=== PATIENT | male | born 1990 | race Caucasian/White ===

== ENCOUNTER 2020-11-11 09:56 | Emergency (ER) | payer OTHER, SELFPAY ==
--- NOTE | ~2020-11-11 | XR_ITS ---
EXAMINATION: XR knee LT min 4V DATE: 11/11/2020 10:18 INDICATION: Left knee pain post fall with twisting injury TECHNIQUE: Anteroposterior, 2 oblique and crosstable lateral views of the left knee were obtained COMPARISON: None. FINDINGS: Alignment is normal. No fracture. Small left knee joint effusion without layering lipohemarthrosis. There are several loose osteochondral bodies posterior to the knee in position suggesting they reside within a Ford's cyst. A couple additional smaller likely loose osteochondral bodies project over Ho ffa's fat pad likely within anterior recess of the knee. Soft tissues are otherwise unremarkable. IMPRESSION: 1. Small left knee joint effusion without evident acute osseous abnormality. Reviewed, dictated and finalized at location A.
[2020-11-11 10:16] VITALS: BP 149/106; PULSE 87; RESP 18; TEMP 36.3; O2SAT 99
--- NOTE | 2020-11-11 11:41 | ED.LOWEXIN ---
HPI - Extremity Injury (Lower) General Chief Complaint: Extremity Injury, Lower Stated Complaint: left knee pain, fall Time Seen by Provider: 11/11/20 11:10 Source: patient Mode of arrival: ambulatory Limitations: no limitations History of Present Illness HPI Narrative: This is a 30-year-old male that presents the emergency department for left knee pain after an injury today. Reports he slipped on some soap and twisted the left knee. Reports since he has had pain in the area. Worse with weightbearing and relieved with rest. Reports decreased range of motion due to pain. Denies hitting his head, loss of consciousness, other injuries, or numbness. Related Data Allergies Allergy/AdvReac Type Severity Reaction Status Date / Time pollen extracts Allergy Mild Unknown Verified 10/24/20 08:09 azithromycin Allergy Unknown Unknown Verified 10/24/20 08:09 Review of Systems Review of Systems: Narrative: CONSTITUTIONAL: Denies fever MUSCULOSKELETAL: Reports joint pain, and myalgia. NEUROLOGIC: Denies numbness All systems reviewed & are unremarkable except as noted in HPI and below PMFSH Past Medical History Medical History Asthma Family History Family History Other Asthma Diabetes mellitus Family history of cardiovascular disease Social History Social History Smoking status: Former smoker Alcohol intake: current Substance use: never Additional occupation/education comments: [employer] - [employer] Gender identity (if verbalized by the patient): Male Agree to blood products: Yes Exam Narrative: Exam Narrative: GENERAL: Well-appearing, well-nourished, and in no acute distress. HEAD: Normocephalic, atraumatic. EYES: EOMI. EXTREMITIES: Decreased active range of motion in the left knee due to pain. No edema or obvious deformity. Normal DP pulses. Normal sensation SKIN: Warm, dry, no rash. NEURO: No focal deficits. Alert and oriented x3. PSYCH: Normal mood and affect Course Vital Signs Vital signs: Vital Signs Temperature 97.3 F L 11/11/20 10:16 Pulse Rate 87 11/11/20 10:16 Respiratory Rate 18 11/11/20 10:16 Blood Pressure 149/106 H 11/11/20 10:16 Pulse Oximetry 99 11/11/20 10:16 Temperature 97.3 F L 11/11/20 10:16 Pulse Rate 87 11/11/20 10:16 Respiratory Rate 18 11/11/20 10:16 Blood Pressure 149/106 H 11/11/20 10:16 Pulse Oximetry 99 11/11/20 10:16 MDM - Extremity Injury (Lower) MDM Narrative Medical decision making narrative: Patient presents to the emergency department for left knee pain after an injury today. Left knee x-ray shows small joint effusion without acute osseous abnormality. Patient placed in knee immobilizer and given crutches. Instructed on care of the strain. He is to follow-up with orthopedics. He was given warnings to return to the ER Imaging Data Radiologist's impression: ITS Impressions Knee X-Ray 11/11/20 10:27 IMPRESSION: 1. Small left knee joint effusion without evident acute osseous abnormality. Critical Care Time Critical Care Time Critical Care Time: No Discharge Plan Discharge Clinical Impression: Left knee sprain Qualifiers: Encounter type: initial encounter Involved ligament of knee: unspecified ligament Qualified Code(s): S83.92XA - Sprain of unspecified site of left knee, initial encounter Patient Disposition: Home, Self-Care Condition: Stable Instructions: Knee Sprain (ED) Additional Instructions: Return to the emergency department if you experience fever, redness and swelling of your leg, numbness, or any other symptoms that are concerning to you Wear knee immobilizer and use crutches. No weight on the affected leg. Ice and elevate extremity. Pain medication as needed and directed. Follow up with orthopedics for further care. Kvng
== END 2020-11-11 12:20 | disposition home or self-care (01) ==
LOC: ANHED 11:54
PROVIDERS: Emergency Provider Emergency Medicine; PCP Family Medicine
DX: S83.92XA Sprain of unspecified site of left knee, initial encounter (principal); J45.909 Unspecified asthma, uncomplicated; W01.0XXA Fall on same level from slipping, tripping and stumbling without subsequent striking against object, initial encounter
CPT/HCPCS: 73564; 99283